=== PATIENT | female | born 1995 | race Caucasian/White ===

== ENCOUNTER → 2017-09-13 | Outpatient (CLI) | payer OTHER ==
[2017-09-13 15:37] LABS: BASO % 0.8 %; BASO ABS # 0.06 K/uL (0-0.2); COMPLETE YES; EOS % 5.9 %; IG% 0.1 %; LYMPH % 32.8 %; LYMPH ABS # 2.34 K/uL (1.2-3.4); MEAN CELL VOLUME 90.5 fL (80-100); MEAN CORPUSCULAR HEMOGLOBIN 30.7 pg (25-34); MEAN CORPUSCULAR HGB CONC 33.9 g/dl (32-36); MEAN PLATELET VOLUME 9.6 fL (7.4-10.4); MONO % 6.3 %; NEUT % 54.1 %; PLATELET COUNT 268 K/uL (130-400); RED BLOOD COUNT 4.53 M/uL (4.2-5.4); WHITE BLOOD COUNT 7.13 K/uL (4.8-10.8)
[2017-09-13 15:59] LABS: ALT/SGPT 26 U/L (12-78); AST/SGOT 15 U/L (15-37); BLOOD UREA NITROGEN 9 mg/dl (7-18); BUN/CREATININE RATIO 11.4 (10-20); CALCIUM 9.3 mg/dl (8.5-10.1); CARBON DIOXIDE 30 mmol/L (21-32); CHLORIDE 103 mmol/L (98-107); GLUCOSE 110 mg/dl (70-99); SODIUM 136 mmol/L (136-145)
[2017-09-13 16:11] LABS: ALB/GLOB RATIO 1.1 (0.9-2); ALKALINE PHOSPHATASE 69 U/L (45-117); THYROID STIMULATING HORMONE 0.567 uIu/ml (0.300-4.500)
[2017-09-13 17:32] LABS: LYME DISEASE AB IGG NEG (NEG)
[2017-09-13 17:33] LABS: LYME DISEASE AB IGM NEG (NEG)
== END | disposition home or self-care (01) ==
LOC: C.LAB 14:52
PROVIDERS: ATTEND Psychiatry & Neurology Neurology
DX: F07.81 Postconcussional syndrome (principal); H53.9 Unspecified visual disturbance; G43.009 Migraine without aura, not intractable, without status migrainosus; G44.84 Primary exertional headache; H53.149 Visual discomfort, unspecified

== ENCOUNTER → 2017-09-17 | Outpatient (CLI) | payer OTHER | END | disposition home or self-care (01) | LOC: C.LAB 07:29 | PROVIDERS: ATTEND Psychiatry & Neurology Neurology | DX: R51 Headache (principal); H53.9 Unspecified visual disturbance; H53.149 Visual discomfort, unspecified ==